=== PATIENT | male | born 1970 | race Caucasian/White ===

== ENCOUNTER 2021-09-20 08:47 | Outpatient (RCR) | payer BC ==
[2021-09-20] MEDS ORDERED: LIDOCAINE HCL 1% LOCAL INJ 20 ML VIAL ONE (10:18)
[2021-09-20] MEDS ORDERED: IOPAMIDOL 300 MG/ML 15ML VIAL IT ONE (10:19)
== END 2021-09-30 ==
LOC: DX 08:47
PROVIDERS: ATTEND Specialist
DX: S46.012A Strain of muscle(s) and tendon(s) of the rotator cuff of left shoulder, initial encounter (principal)
CPT/HCPCS: 23350; 73201; 77002; J2001; Q9967

== ENCOUNTER → 2021-09-30 | Outpatient (RCR) | payer BC | LOC: PT 09-24 08:57 | PROVIDERS: ATTEND Specialist | DX: S46.012A Strain of muscle(s) and tendon(s) of the rotator cuff of left shoulder, initial encounter (principal) ==

== ENCOUNTER 2021-10-04 09:52 | Outpatient (RCR) | payer BC ==
[2021-10-07] MEDS ORDERED: LEVOTHYROXINE50 MCG PO (09:24)
[2021-10-07] MEDS ORDERED: FUROSEMIDE40 MG PO (09:24)
[2021-10-07] MEDS ORDERED: ENTRESTO 24 MG1 EACH PO (09:24)
[2021-10-07] MEDS ORDERED: AMIODARONE HCL200 MG PO (09:24)
[2021-10-07] MEDS ORDERED: FLUOXETINE HCL10 MG PO (09:24)
[2021-10-07] MEDS ORDERED: ASPIRIN81 MG PO (09:24)
[2021-10-07] MEDS ORDERED: MELOXICAM7.5 MG PO (09:24)
[2021-10-07] MEDS ORDERED: CARVEDILOL3.125 MG PO (09:24)
[2021-10-10] MEDS ORDERED: HYDROCODON-ACE1 EA12 PO (10:20)
== END 2021-10-28 ==
LOC: PT 09:52
PROVIDERS: ATTEND Specialist
DX: S46.012A Strain of muscle(s) and tendon(s) of the rotator cuff of left shoulder, initial encounter (principal)

== ENCOUNTER 2021-10-10 06:20 | Observation (INO) | payer BC ==
[2021-10-07 10:33] LABS: BASOPHILS # (AUTO) 0.1 (0.0-0.1); BASOPHILS % 0.9 % (0.0-1.0); EOSINOPHILS # (AUTO) 0.1 (0.0-0.4); EOSINOPHILS % 1.3 % (0.0-6.0); HEMOGLOBIN 14.9 g/dL (14.0-18.0); LYMPHOCYTES # (AUTO) 2.2 (1.0-3.2); LYMPHOCYTES % 27.1 % (18.0-39.1); MEAN CORPUSCULAR HEMOGLOBIN 30.7 pg (28-32); MEAN CORPUSCULAR HGB CONC 32.4 g/dL (31-35); MEAN CORPUSCULAR VOLUME 94.7 fL (81-99); MONOCYTES # (AUTO) 0.5 (0.2-0.8); MONOCYTES % 6.6 % (4.4-11.3); NEUTROPHILS # (AUTO) 5.2 (2.1-6.9); NEUTROPHILS % 63.5 % (38.7-80.0); PLATELET COUNT 208 x10e3/uL (140-360); RED BLOOD COUNT 4.86 x10e6/uL (4.3-5.7)
[2021-10-07 10:54] LABS: CREATININE, SERUM 0.99 mg/dL (0.72-1.25)
[2021-10-07 11:03] LABS: INR 0.9; PROTHROMBIN TIME 12.8 seconds (11.9-14.5)
[2021-10-07 11:04] LABS: PARTIAL THROMBOPLASTIN TIME 25.8 seconds (23.8-35.5)
[~2021-10-10] VITALS: Ht 182.9 cm; Wt 109.3 kg
[~2021-10-10 06:20] MED LIST: AMIODARONE HCL200 MG PO; ASPIRIN81 MG PO; CARVEDILOL3.125 MG PO; ENTRESTO 24 MG1 EACH PO; FLUOXETINE HCL10 MG PO; FUROSEMIDE40 MG PO; LEVOTHYROXINE50 MCG PO; MELOXICAM7.5 MG PO
[2021-10-10] MEDS ORDERED: THROMBIN FOR SOLN 5,000 UNIT VIAL ONE (06:54)
[2021-10-10] MEDS ORDERED: Vancomycin IV 1 GM VIAL ONE (06:54)
[2021-10-10] MEDS ORDERED: LIDOCAINE 2%/ EPINEPHRINE 20ML MDV ONE (06:54)
[2021-10-10] MEDS ORDERED: CEPACOL SORE THROAT LOZENGES PO PRN (10:15)
[2021-10-10] MEDS: LACTATED RINGER'S 1,000 ML IV SCH ×2 (10:15→15:43)
[2021-10-10] MEDS ORDERED: MORPHINE SULFATE 5 MG/ML VIAL IM PRN (10:15)
[2021-10-10] MEDS ORDERED: MAGNESIUM/ALUMINUM/SIMETHICONE 30 ML UDC PO PRN (10:15)
[2021-10-10] MEDS ORDERED: PROMETHAZINE HCL (IM) 25 MG/ML VIAL IM PRN (10:15)
[2021-10-10] MEDS ORDERED: ACETAMINOPHEN 325 MG TAB PO PRN (10:15)
[2021-10-10] MEDS ORDERED: CARISOPRODOL 350 MG TAB PO PRN (10:15)
[2021-10-10] MEDS ORDERED: HYDROCODON-ACE1 EA12 PO (10:20)
[2021-10-10] MEDS ORDERED: FENTANYL CITRATE/PF 100MCG/2 ML INJ ONE ×2 (10:58→13:08)
[2021-10-10] MEDS ORDERED: Morphine 2mg Syringe 2 MG/ML SYR ONE (11:16)
[2021-10-10] MEDS ORDERED: ONDANSETRON HCL INJ 2MG/ML 2ML 2 MG/ML VIAL ONE (12:31)
[2021-10-10] MEDS ORDERED: POVIDONE IODINE 0.05% 0.05 % ML PO ONE (12:31)
[2021-10-10] MEDS ORDERED: PHENYLEPHRINE HCL 1% 10 MG/ML VIAL ONE (12:31)
[2021-10-10] MEDS ORDERED: ROCURONIUM BROMIDE 10 MG/ML 5ML VIAL IV ONE (12:31)
[2021-10-10] MEDS ORDERED: PROPOFOL IV EMULSION 10 MG/ML 20 ML VIAL ONE (12:31)
[2021-10-10] MEDS ORDERED: DEXAMETHASONE SOD PHOS INJ 4 MG/ML SDV ONE (12:31)
[2021-10-10] MEDS ORDERED: ACETAMINOPHEN 1000 MG/100 ML IV ONE (12:31)
[2021-10-10] MEDS ORDERED: LIDOCAINE HCL 2% LOCAL INJ 5 ML SDV VIAL INJ ONE (12:31)
[2021-10-10] MEDS ORDERED: SEVOFLURANE INHAL SOLN 250 ML PEN BTL ONE (12:31)
[2021-10-10] MEDS ORDERED: MIDAZOLAM HCL 2 MG/2 ML VIAL ONE (13:08)
[2021-10-10] MEDS: ONDANSETRON HCL INJ 2MG/ML 2ML 2 MG/ML VIAL IV PRN ×2 (14:03→18:48)
[2021-10-10] MEDS: HYDROMORPHONE 2MG/ML 2 MG/ML ML IV PRN ×3 (14:13→23:30)
[2021-10-10] MEDS: OXYCODONE/ACETAMINOPHEN 5-325 1 EACH TABLET PO PRN ×2 (15:31→22:12)
[2021-10-10 15:35] VITALS: BP 115/84
[2021-10-10 16:05] VITALS: BP 126/84
[2021-10-10] MEDS: Cefazolin 1 GM in SODIUM CHLORIDE 0.9% 50ML 50 ML IV SCH (16:45)
[2021-10-10] MEDS: CARVEDILOL 3.125 MG TAB PO SCH (16:45)
[2021-10-10] MEDS: VALSARTAN/SACUBITRIL 24MG/26MG 1 EA TAB PO SCH (16:46)
[2021-10-10 20:00] VITALS: BP 127/84
[2021-10-10] MEDS ORDERED: ZOLPIDEM TARTRATE 5 MG TAB PO PRN (21:00)
[2021-10-11] VITALS: BP 121/81
[2021-10-11] MEDS: Cefazolin 1 GM in SODIUM CHLORIDE 0.9% 50ML 50 ML IV SCH ×2 (00:20→08:23)
[2021-10-11 00:50] VITALS: BP 127/84
[2021-10-11] MEDS: LACTATED RINGER'S 1,000 ML IV SCH (02:57)
[2021-10-11 04:00] VITALS: BP 134/82
[2021-10-11] MEDS: HYDROMORPHONE 2MG/ML 2 MG/ML ML IV PRN (05:15)
[2021-10-11] MEDS ORDERED: LEVOTHYROXINE SODIUM 50 MCG TAB PO SCH (06:00)
[2021-10-11 08:15] VITALS: BP 119/79
[2021-10-11] MEDS: CARVEDILOL 3.125 MG TAB PO SCH (08:23)
[2021-10-11] MEDS: VALSARTAN/SACUBITRIL 24MG/26MG 1 EA TAB PO SCH (08:23)
[2021-10-11] MEDS: OXYCODONE/ACETAMINOPHEN 5-325 1 EACH TABLET PO PRN (08:26)
[2021-10-11] MEDS ORDERED: FLUOXETINE HCL 10 MG CAP PO SCH (09:00)
[2021-10-11] MEDS ORDERED: AMIODARONE HCL 200 MG TAB PO SCH (09:00)
[2021-10-11] MEDS ORDERED: MELOXICAM 7.5 MG TAB PO SCH (09:00)
[2021-10-11] MEDS ORDERED: FUROSEMIDE 20 MG TAB PO SCH (09:00)
== END 2021-10-11 10:12 | disposition home or self-care (01) ==
LOC: OR 06:20 → PACU V 10:37 → MED/SURG 12:10
PROVIDERS: ADMIT Neurological Surgery; ATTEND Neurological Surgery
DX: M50.122 Cervical disc disorder at C5-C6 level with radiculopathy (principal); N17.9 Acute kidney failure, unspecified; I25.2 Old myocardial infarction; Z20.822 Contact with and (suspected) exposure to COVID-19; Z01.818 Encounter for other preprocedural examination; E87.5 Hyperkalemia; I11.0 Hypertensive heart disease with heart failure; I42.9 Cardiomyopathy, unspecified; I50.42 Chronic combined systolic (congestive) and diastolic (congestive) heart failure
CPT/HCPCS: 20931; 22551; 22845; 36415; 71046; 72040; 76000; 80048; 85025; 85610; 85730; 86850; 86900; 88304; 88311; 93005 ×3; C1713; G0378 ×2; J0131; J0690 ×2; J1100; J1170 ×2; J2001 ×2; J2250; J2270; J2370; J2405 ×2; J2704; J3010; J3370; J7121 ×2; U0002

== ENCOUNTER → 2021-10-28 | Outpatient (CLI) | payer BC ==
[~2021-10-28] MED LIST changes: +HYDROCODON-ACE1 EA12 PO
== END ==
LOC: RAD 09:21
PROVIDERS: ATTEND Neurological Surgery
DX: M50.20 Other cervical disc displacement, unspecified cervical region (principal); M43.22 Fusion of spine, cervical region
CPT/HCPCS: 72050

== ENCOUNTER 2021-10-30 09:52 | Outpatient (RCR) | payer BC | END 2021-11-28 | LOC: PT 09:52 | PROVIDERS: ATTEND Specialist | DX: S46.012A Strain of muscle(s) and tendon(s) of the rotator cuff of left shoulder, initial encounter (principal); M25.512 Pain in left shoulder | CPT/HCPCS: 97139 ==

== ENCOUNTER 2021-11-26 07:03 | Observation (INO) | payer BC ==
[2021-11-22 12:03] LABS: BASOPHILS # (AUTO) 0.1 (0.0-0.1); BASOPHILS % 0.9 % (0.0-1.0); EOSINOPHILS # (AUTO) 0.2 (0.0-0.4); EOSINOPHILS % 2.6 % (0.0-6.0); HEMATOCRIT 43.4 % (38.2-49.6); HEMOGLOBIN 14.3 g/dL (14.0-18.0); LYMPHOCYTES # (AUTO) 1.8 (1.0-3.2); MEAN CORPUSCULAR HEMOGLOBIN 31.1 pg (28-32); MEAN CORPUSCULAR HGB CONC 32.9 g/dL (31-35); MEAN CORPUSCULAR VOLUME 94.3 fL (81-99); MONOCYTES # (AUTO) 0.5 (0.2-0.8); MONOCYTES % 6.9 % (4.4-11.3); NEUTROPHILS # (AUTO) 4.1 (2.1-6.9); PLATELET COUNT 178 x10e3/uL (140-360); RED CELL DISTRIBUTION WIDTH 13.5 % (11.7-14.4)
[2021-11-22 12:22] LABS: ANION GAP 10.2 mmol/L (8-16); CALCIUM 9.1 mg/dL (8.4-10.2); CREATININE, SERUM 0.92 mg/dL (0.72-1.25); POTASSIUM 4.2 mmol/L (3.5-5.1)
[~2021-11-26] VITALS: Ht 182.9 cm; Wt 113.4 kg
[2021-11-26] MEDS ORDERED: SODIUM CHLORIDE 0.9% 50ML 50 ML ONE (07:21)
[2021-11-26] MEDS ORDERED: HYDRALAZINE HCL 20 MG/ML VIAL ONE (12:56)
[2021-11-26] MEDS ORDERED: Morphine 4mg Syringe 4 MG/ML INJ ONE (13:01)
[2021-11-26] MEDS ORDERED: ONDANSETRON HCL INJ 2MG/ML 2ML 2 MG/ML VIAL ONE (13:04)
[2021-11-26] MEDS ORDERED: SEVOFLURANE INHAL SOLN 250 ML PEN BTL ONE (13:04)
[2021-11-26] MEDS ORDERED: PROPOFOL IV EMULSION 10 MG/ML 20 ML VIAL ONE (13:04)
[2021-11-26] MEDS ORDERED: LIDOCAINE HCL 2% LOCAL INJ 5 ML SDV VIAL INJ ONE (13:04)
[2021-11-26] MEDS ORDERED: ACETAMINOPHEN 1000 MG/100 ML IV ONE (13:04)
[2021-11-26] MEDS ORDERED: DEXAMETHASONE SOD PHOS INJ 4 MG/ML SDV ONE (13:04)
[2021-11-26] MEDS ORDERED: POVIDONE IODINE 0.05% 0.05 % ML PO ONE (13:04)
[2021-11-26] MEDS ORDERED: KETOROLAC TROMETHAMINE 30 MG/ML VIAL ONE (13:04)
[2021-11-26] MEDS ORDERED: NITROGLYCERIN 0.4 MG SUBL ONE (13:13)
[2021-11-26] MEDS ORDERED: ASPIRIN 325 MG TAB ONE (13:37)
[2021-11-26] MEDS ORDERED: FENTANYL CITRATE/PF 100MCG/2 ML INJ ONE ×2 (14:29→17:02)
[2021-11-26 14:38] LABS: CREATINE KINASE MB 0.7 ng/mL (0-5.0)
[2021-11-26] MEDS ORDERED: ACETAMINOPHEN/CODEINE 300MG - 30MG TAB ONE (15:37)
[2021-11-26 15:40] VITALS: BP 116/68
[2021-11-26 15:43] VITALS: BP 116/68
[2021-11-26] MEDS ORDERED: MIDAZOLAM HCL 2 MG/2 ML VIAL ONE (17:02)
[2021-11-26] MEDS ORDERED: FUROSEMIDE INJ 10 MG/ML 4 ML VIAL IV ONE (18:45)
[2021-11-26] MEDS ORDERED: Morphine 2mg Syringe 2 MG/ML SYR IV ONE (18:50)
[2021-11-26 20:00] VITALS: BP 114/70
[2021-11-26] MEDS: HYDROCODONE/APAP 7.5MG-325MG 1 EA TAB PO PRN (21:56)
[2021-11-26 22:02] VITALS: BP 114/70
[2021-11-26 22:02] LABS: CREATINE KINASE 50 IU/L (30-200)
[2021-11-27] VITALS: BP 126/82
[2021-11-27] MEDS: HYDROCODONE/APAP 7.5MG-325MG 1 EA TAB PO PRN ×3 (03:57→14:50)
[2021-11-27 04:00] VITALS: BP 129/77
[2021-11-27 05:42] LABS: BASOPHILS % 0.1 % (0.0-1.0); EOSINOPHILS % 0.1 % (0.0-6.0); HEMATOCRIT 38.2 % (38.2-49.6); HEMOGLOBIN 12.9 g/dL (14.0-18.0); LYMPHOCYTES # (AUTO) 1.2 (1.0-3.2); LYMPHOCYTES % 14.8 % (18.0-39.1); MEAN CORPUSCULAR HEMOGLOBIN 31.5 pg (28-32); MEAN CORPUSCULAR HGB CONC 33.8 g/dL (31-35); MEAN CORPUSCULAR VOLUME 93.4 fL (81-99); MONOCYTES # (AUTO) 0.4 (0.2-0.8); MONOCYTES % 4.6 % (4.4-11.3); NEUTROPHILS # (AUTO) 6.3 (2.1-6.9); NEUTROPHILS % 79.8 % (38.7-80.0); PLATELET COUNT 184 x10e3/uL (140-360); RED BLOOD COUNT 4.09 x10e6/uL (4.3-5.7); RED CELL DISTRIBUTION WIDTH 13.4 % (11.7-14.4)
[2021-11-27 06:08] LABS: ALBUMIN 3.5 g/dL (3.5-5.0); ALBUMIN/GLOBULIN RATIO 1.1 (0.8-2.0); CALCIUM 8.8 mg/dL (8.4-10.2); CREATININE, SERUM 0.82 mg/dL (0.72-1.25)
[2021-11-27 06:40] LABS: CREATINE KINASE MB 0.5 ng/mL (0-5.0)
[2021-11-27 08:20] VITALS: BP 132/78
[2021-11-27 08:39] VITALS: BP 132/78
[2021-11-27] MEDS ORDERED: FUROSEMIDE 20 MG TAB PO SCH (09:00)
[2021-11-27] MEDS ORDERED: ASPIRIN 81 MG CHEW TAB PO SCH (09:00)
[2021-11-27] MEDS: CARVEDILOL 3.125 MG TAB PO SCH ×2 (09:48→17:39)
[2021-11-27] MEDS: VALSARTAN/SACUBITRIL 24MG/26MG 1 EA TAB PO SCH ×2 (09:49→17:39)
[2021-11-27 13:32] VITALS: BP 132/76
[2021-11-27 16:33] VITALS: BP 129/81
[2021-11-27] MEDS ORDERED: TAMSULOSIN HCL 0.4 MG CAP PO SCH (17:40)
[2021-11-28] MEDS ORDERED: FUROSEMIDE 20 MG TAB PO SCH ×2 (09:00)
== END 2021-11-27 19:54 | disposition home or self-care (01) ==
LOC: OR 07:03 → PACU V 14:18 → MED/SURG 15:21
PROVIDERS: ADMIT Specialist; ATTEND Specialist
DX: M22.41 Chondromalacia patellae, right knee (principal); T88.59XA Other complications of anesthesia, initial encounter; R07.9 Chest pain, unspecified; E78.5 Hyperlipidemia, unspecified; I49.5 Sick sinus syndrome; G89.18 Other acute postprocedural pain; E03.9 Hypothyroidism, unspecified; I11.0 Hypertensive heart disease with heart failure; I50.9 Heart failure, unspecified; Z95.810 Presence of automatic (implantable) cardiac defibrillator; Z79.82 Long term (current) use of aspirin; Z88.0 Allergy status to penicillin; Z01.812 Encounter for preprocedural laboratory examination; Z20.822 Contact with and (suspected) exposure to COVID-19; Z82.49 Family history of ischemic heart disease and other diseases of the circulatory system
CPT/HCPCS: 29877; 36415 ×3; 71045; 80048; 80053; 82550 ×2; 82553 ×2; 84484 ×2; 85025 ×2; 93005; 93306; G0378 ×2; J0131; J0360; J0690; J1100; J1885; J1940; J2001; J2270 ×2; J2405; J2704; J3010; U0002; J2250

== ENCOUNTER 2021-12-17 10:36 | Inpatient (IN) | payer BC ==
[~2021-12-17] VITALS: Ht 182.9 cm; Wt 113.5 kg
[2021-12-17] MEDS ORDERED: ASPIRIN 81 MG CHEW TAB PO ONE (10:45)
[2021-12-17 11:22] LABS: BASOPHILS # (AUTO) 0.1 (0.0-0.1); BASOPHILS % 0.8 % (0.0-1.0); EOSINOPHILS # (AUTO) 0.1 (0.0-0.4); EOSINOPHILS % 2.2 % (0.0-6.0); HEMATOCRIT 40.8 % (38.2-49.6); HEMOGLOBIN 13.9 g/dL (14.0-18.0); LYMPHOCYTES # (AUTO) 1.7 (1.0-3.2); MEAN CORPUSCULAR HEMOGLOBIN 31.6 pg (28-32); MEAN CORPUSCULAR HGB CONC 34.1 g/dL (31-35); MEAN CORPUSCULAR VOLUME 92.7 fL (81-99); MONOCYTES # (AUTO) 0.5 (0.2-0.8); MONOCYTES % 7.1 % (4.4-11.3); NEUTROPHILS % 62.6 % (38.7-80.0); PLATELET COUNT 202 x10e3/uL (140-360); RED CELL DISTRIBUTION WIDTH 13.1 % (11.7-14.4)
[2021-12-17 11:34] LABS: INR 0.91; PARTIAL THROMBOPLASTIN TIME 27.7 seconds (23.8-35.5); PROTHROMBIN TIME 13.1 seconds (11.9-14.5)
[2021-12-17] MEDS ORDERED: IOPAMIDOL 370 MG/ML 100 ML INFUS..BTL INJ ONE (11:42)
[2021-12-17 11:43] LABS: ALANINE AMINOTRANSFERASE 17 IU/L (0-55); ALBUMIN 3.6 g/dL (3.5-5.0); ALBUMIN/GLOBULIN RATIO 1.1 (0.8-2.0); ALKALINE PHOSPHATASE 49 IU/L (40-150); BLOOD UREA NITROGEN 14 mg/dL (7-26); BUN/CREATININE RATIO 18 (6-25); CALCIUM 8.4 mg/dL (8.4-10.2); CARBON DIOXIDE 23 mmol/L (22-29); CHLORIDE 109 mmol/L (98-107); CREATINE KINASE 68 IU/L (30-200); CREATININE, SERUM 0.79 mg/dL (0.72-1.25); EST GLOMERULAR FILTRATION RATE 103 ML/MIN (60-); GLUCOSE 94 mg/dL (74-118); SODIUM 140 mmol/L (136-145)
[2021-12-17] MEDS ORDERED: ONDANSETRON HCL INJ 2MG/ML 2ML 2 MG/ML VIAL IV STA (11:49)
[2021-12-17] MEDS ORDERED: Morphine 4mg Syringe 4 MG/ML INJ IV ONE (12:00)
[2021-12-17] MEDS ORDERED: NITROGLYCERIN 0.4 MG SUBL SL PRN (13:00)
[2021-12-17] MEDS: FAMOTIDINE 20 MG/2 ML VIAL IV SCH ×2 (14:18→21:00)
[2021-12-17 15:30] VITALS: BP 108/62
[2021-12-17 15:57] VITALS: BP 108/62
[2021-12-17] MEDS: ONDANSETRON HCL INJ 2MG/ML 2ML 2 MG/ML VIAL IV PRN ×2 (16:55→21:32)
[2021-12-17] MEDS: Morphine 4mg Syringe 4 MG/ML INJ IV PRN ×2 (16:55→21:32)
[2021-12-17] MEDS: CARVEDILOL 3.125 MG TAB PO SCH (17:38)
[2021-12-17] MEDS ORDERED: FUROSEMIDE INJ 10 MG/ML 4 ML VIAL IV ONE (17:45)
[2021-12-17] MEDS: VALSARTAN/SACUBITRIL 24MG/26MG 1 EA TAB PO SCH (18:33)
[2021-12-17 20:14] LABS: CREATINE KINASE 55 IU/L (30-200)
[2021-12-17] MEDS ORDERED: TAMSULOSIN HCL 0.4 MG CAP PO SCH (21:00)
[2021-12-17] MEDS: TRAMADOL HCL 50 MG TAB PO PRN (21:00)
[2021-12-17 21:50] VITALS: BP 105/58
[2021-12-17 23:58] VITALS: BP 118/59
[2021-12-18] MEDS: ONDANSETRON HCL INJ 2MG/ML 2ML 2 MG/ML VIAL IV PRN ×3 (03:29→13:20)
[2021-12-18] MEDS: Morphine 4mg Syringe 4 MG/ML INJ IV PRN ×4 (03:29→17:36)
[2021-12-18] MEDS: LEVOTHYROXINE SODIUM 50 MCG TAB PO SCH (05:19)
[2021-12-18 05:23] LABS: BASOPHILS % 0.6 % (0.0-1.0); EOSINOPHILS # (AUTO) 0.2 (0.0-0.4); EOSINOPHILS % 2.9 % (0.0-6.0); HEMATOCRIT 38.8 % (38.2-49.6); HEMOGLOBIN 12.6 g/dL (14.0-18.0); LYMPHOCYTES # (AUTO) 2.1 (1.0-3.2); LYMPHOCYTES % 34.2 % (18.0-39.1); MEAN CORPUSCULAR HEMOGLOBIN 31.1 pg (28-32); MEAN CORPUSCULAR HGB CONC 32.5 g/dL (31-35); MEAN CORPUSCULAR VOLUME 95.8 fL (81-99); MONOCYTES # (AUTO) 0.4 (0.2-0.8); MONOCYTES % 6.5 % (4.4-11.3); NEUTROPHILS # (AUTO) 3.4 (2.1-6.9); NEUTROPHILS % 55.3 % (38.7-80.0); PLATELET COUNT 184 x10e3/uL (140-360); RED BLOOD COUNT 4.05 x10e6/uL (4.3-5.7); RED CELL DISTRIBUTION WIDTH 13.3 % (11.7-14.4)
[2021-12-18 05:51] LABS: ALBUMIN 3.3 g/dL (3.5-5.0); ALBUMIN/GLOBULIN RATIO 1.1 (0.8-2.0); ANION GAP 10.6 mmol/L (8-16); CHOL/HDL RATIO 2.8 (3.9-4.7); CREATININE, SERUM 0.9 mg/dL (0.72-1.25); POTASSIUM 3.6 mmol/L (3.5-5.1)
[2021-12-18 06:16] LABS: CREATINE KINASE 43 IU/L (30-200)
[2021-12-18 06:31] VITALS: BP 120/60
[2021-12-18 08:00] VITALS: BP 105/68
[2021-12-18 08:08] VITALS: BP 105/68
[2021-12-18] MEDS: ASPIRIN 81 MG CHEW TAB PO SCH (08:51)
[2021-12-18] MEDS: AMIODARONE HCL 200 MG TAB PO SCH (08:51)
[2021-12-18] MEDS: VALSARTAN/SACUBITRIL 24MG/26MG 1 EA TAB PO SCH ×2 (08:51→17:31)
[2021-12-18] MEDS: FAMOTIDINE 20 MG/2 ML VIAL IV SCH ×2 (08:51→21:12)
[2021-12-18] MEDS: CARVEDILOL 3.125 MG TAB PO SCH ×2 (08:51→17:31)
[2021-12-18] MEDS: FLUOXETINE HCL 10 MG CAP PO SCH (08:52)
[2021-12-18] MEDS: FUROSEMIDE 20 MG TAB PO SCH (08:54)
[2021-12-18] MEDS ORDERED: ASPIRIN 81 MG ENTERIC COATED PO SCH (09:00)
[2021-12-18] MEDS: TRAMADOL HCL 50 MG TAB PO PRN (10:37)
[2021-12-18 10:41] VITALS: BP 116/69
[2021-12-18 14:41] LABS: CREATINE KINASE 46 IU/L (30-200)
[2021-12-18 16:32] VITALS: BP 128/76
[2021-12-18 20:00] VITALS: BP 111/67
[2021-12-18] MEDS: TAMSULOSIN HCL 0.4 MG CAP PO SCH (21:12)
[2021-12-18] MEDS: HYDROMORPHONE 1MG/1ML INJ IV PRN (22:16)
[2021-12-19] VITALS: BP 117/57
[2021-12-19] MEDS: TRAMADOL HCL 50 MG TAB PO PRN ×3 (00:05→16:23)
[2021-12-19] MEDS: HYDROMORPHONE 1MG/1ML INJ IV PRN ×2 (03:37→22:56)
[2021-12-19 04:22] VITALS: BP 109/67
[2021-12-19] MEDS: LEVOTHYROXINE SODIUM 50 MCG TAB PO SCH (05:51)
[2021-12-19 07:49] VITALS: BP 102/61
[2021-12-19 08:00] VITALS: BP 102/61
[2021-12-19 08:24] LABS: BASOPHILS % 0.6 % (0.0-1.0); EOSINOPHILS # (AUTO) 0.2 (0.0-0.4); EOSINOPHILS % 2.6 % (0.0-6.0); HEMATOCRIT 39.8 % (38.2-49.6); LYMPHOCYTES # (AUTO) 1.9 (1.0-3.2); LYMPHOCYTES % 28.5 % (18.0-39.1); MEAN CORPUSCULAR HEMOGLOBIN 31.2 pg (28-32); MEAN CORPUSCULAR HGB CONC 32.7 g/dL (31-35); MEAN CORPUSCULAR VOLUME 95.4 fL (81-99); MONOCYTES # (AUTO) 0.5 (0.2-0.8); MONOCYTES % 6.8 % (4.4-11.3); NEUTROPHILS # (AUTO) 4.2 (2.1-6.9); NEUTROPHILS % 61.1 % (38.7-80.0); PLATELET COUNT 186 x10e3/uL (140-360); RED BLOOD COUNT 4.17 x10e6/uL (4.3-5.7); RED CELL DISTRIBUTION WIDTH 12.9 % (11.7-14.4)
[2021-12-19 08:46] LABS: CALCIUM 8.3 mg/dL (8.4-10.2); CREATININE, SERUM 0.82 mg/dL (0.72-1.25)
[2021-12-19] MEDS ORDERED: LIDOCAINE 4% PATCH TP SCH (09:00)
[2021-12-19] MEDS: AMIODARONE HCL 200 MG TAB PO SCH (09:39)
[2021-12-19] MEDS: ASPIRIN 81 MG CHEW TAB PO SCH (09:39)
[2021-12-19] MEDS: FAMOTIDINE 20 MG/2 ML VIAL IV SCH ×2 (09:39→21:00)
[2021-12-19] MEDS: VALSARTAN/SACUBITRIL 24MG/26MG 1 EA TAB PO SCH ×2 (09:40→16:23)
[2021-12-19] MEDS: TAMSULOSIN HCL 0.4 MG CAP PO SCH ×2 (09:41→16:23)
[2021-12-19] MEDS: FLUOXETINE HCL 10 MG CAP PO SCH (09:41)
[2021-12-19] MEDS: CARVEDILOL 3.125 MG TAB PO SCH ×2 (09:44→16:23)
[2021-12-19] MEDS: FUROSEMIDE 20 MG TAB PO SCH (09:52)
[2021-12-19 11:18] VITALS: BP 123/66
[2021-12-19] MEDS ORDERED: ONDANSETRON HCL 4 MG ORAL DISINTEGRATING TAB PO PRN (18:15)
[2021-12-19 20:00] VITALS: BP 119/77
[2021-12-20] VITALS: BP 118/69
[2021-12-20 04:00] VITALS: BP 110/87
[2021-12-20] MEDS: LEVOTHYROXINE SODIUM 50 MCG TAB PO SCH (05:13)
[2021-12-20] MEDS: HYDROMORPHONE 1MG/1ML INJ IV PRN (05:14)
[2021-12-20 08:42] VITALS: BP 133/82
[2021-12-20] MEDS: AMIODARONE HCL 200 MG TAB PO SCH (09:00)
[2021-12-20] MEDS ORDERED: LIDOCAINE 4% PATCH TP SCH (09:00)
[2021-12-20] MEDS: CARVEDILOL 3.125 MG TAB PO SCH (09:00)
[2021-12-20] MEDS: FUROSEMIDE 20 MG TAB PO SCH (09:00)
[2021-12-20] MEDS: TAMSULOSIN HCL 0.4 MG CAP PO SCH (09:00)
[2021-12-20] MEDS: VALSARTAN/SACUBITRIL 24MG/26MG 1 EA TAB PO SCH (09:00)
[2021-12-20] MEDS: FLUOXETINE HCL 10 MG CAP PO SCH (09:00)
[2021-12-20] MEDS: ASPIRIN 81 MG CHEW TAB PO SCH (09:00)
[2021-12-20 10:15] VITALS: BP 133/82
[2021-12-20] MEDS ORDERED: FLOMAX0.4 MG PO (10:50)
[2021-12-20] MEDS ORDERED: PROSCAR5 MG PO (10:51)
[2021-12-20] MEDS ORDERED: FAMOTIDINE 20 MG TAB PO SCH (21:00)
== END 2021-12-20 12:06 | disposition home or self-care (01) | DRG 313 ==
LOC: ER 11:28 → ERHOLD 12:47 → MED/SURG 15:23
PROVIDERS: ADMIT Family Medicine; ATTEND Family Medicine
DX: R07.89 Other chest pain (principal); I42.9 Cardiomyopathy, unspecified; I10 Essential (primary) hypertension; R33.9 Retention of urine, unspecified; Z95.810 Presence of automatic (implantable) cardiac defibrillator; G47.33 Obstructive sleep apnea (adult) (pediatric); Z86.74 Personal history of sudden cardiac arrest; E03.9 Hypothyroidism, unspecified; E78.5 Hyperlipidemia, unspecified; E83.41 Hypermagnesemia; D64.9 Anemia, unspecified; E83.51 Hypocalcemia; N47.1 Phimosis; I49.5 Sick sinus syndrome; N40.1 Benign prostatic hyperplasia with lower urinary tract symptoms; R33.8 Other retention of urine; N28.1 Cyst of kidney, acquired; Z20.822 Contact with and (suspected) exposure to COVID-19
CPT/HCPCS: 36415; 70450; 71045; 71260; 74176; 80048; 80053; 80061; 82533; 82550; 82553; 83735; 83880; 84443; 84484; 85025; 85610; 85651; 85730; 86141; 87040; 93005; 93306; 93880; 94799; 99251; 99284; J1170; J1940; J2270; J2405; Q9967; U0002

== ENCOUNTER → 2022-01-13 | Day surgery (SDC) | payer BC ==
[~2022-01-13] MED LIST changes: +ACETAMINOPHEN 1000 MG/100 ML IV ONE; +DEXAMETHASONE SOD PHOS INJ 4 MG/ML SDV ONE; +EPHEDRINE SULFATE INJ 50 MG/ML VIAL ONE; +EPINEPHRINE 1 MG/ML 30ML VIAL ONE; +FENTANYL CITRATE/PF 100MCG/2 ML INJ ONE; +FLOMAX0.4 MG PO; +GLYCOPYRROLATE INJ 0.2 MG/ML VIAL ONE; +LIDOCAINE HCL 2% LOCAL 20 ML VIAL ONE; +LIDOCAINE HCL 2% LOCAL INJ 5 ML SDV VIAL INJ ONE; +MEPERIDINE HCL INJ 25 MG/ML VIAL ONE; +MIDAZOLAM HCL 2 MG/2 ML VIAL ONE; +Morphine 2mg Syringe 2 MG/ML SYR ONE; +NEOSTIGMINE 1 MG/ML 10ML VIAL ONE; +ONDANSETRON HCL INJ 2MG/ML 2ML 2 MG/ML VIAL ONE; +POVIDONE IODINE 0.05% 0.05 % ML PO ONE; +PROPOFOL IV EMULSION 10 MG/ML 20 ML VIAL ONE; +PROSCAR5 MG PO; +ROPIVACAINE 0.5% 5 MG/ML 30 ML SDV ONE; +SEVOFLURANE INHAL SOLN 250 ML PEN BTL ONE
[2022-01-13 10:40] VITALS: BP 125/81
== END | disposition home or self-care (01) ==
LOC: OR 07:22
PROVIDERS: ATTEND Specialist
DX: S46.012A Strain of muscle(s) and tendon(s) of the rotator cuff of left shoulder, initial encounter (principal); M19.012 Primary osteoarthritis, left shoulder; I11.0 Hypertensive heart disease with heart failure; I50.42 Chronic combined systolic (congestive) and diastolic (congestive) heart failure; R07.89 Other chest pain; I42.9 Cardiomyopathy, unspecified; E78.5 Hyperlipidemia, unspecified; R94.31 Abnormal electrocardiogram [ECG] [EKG]; R93.1 Abnormal findings on diagnostic imaging of heart and coronary circulation; I44.7 Left bundle-branch block, unspecified; F41.9 Anxiety disorder, unspecified; X58.XXXA Exposure to other specified factors, initial encounter; Z88.0 Allergy status to penicillin; Z01.812 Encounter for preprocedural laboratory examination; Z20.822 Contact with and (suspected) exposure to COVID-19; Z79.82 Long term (current) use of aspirin; Z68.33 Body mass index [BMI] 33.0-33.9, adult; Z95.810 Presence of automatic (implantable) cardiac defibrillator; Z86.74 Personal history of sudden cardiac arrest
CPT/HCPCS: 29827; C1713; J0131; J0690; J1100; J2001; J2175; J2270; J2405; J2704; J2710; U0002; J2250; J2795; J3010

== ENCOUNTER → 2022-02-25 | Day surgery (SDC) | payer BC ==
[2022-02-21 09:13] LABS: BASOPHILS # (AUTO) 0.1 (0.0-0.1); BASOPHILS % 0.8 % (0.0-1.0); EOSINOPHILS # (AUTO) 0.2 (0.0-0.4); EOSINOPHILS % 3.4 % (0.0-6.0); HEMATOCRIT 45.2 % (38.2-49.6); HEMOGLOBIN 14.2 g/dL (14.0-18.0); LYMPHOCYTES # (AUTO) 1.6 (1.0-3.2); LYMPHOCYTES % 25.5 % (18.0-39.1); MEAN CORPUSCULAR HEMOGLOBIN 30.9 pg (28-32); MEAN CORPUSCULAR HGB CONC 31.4 g/dL (31-35); MEAN CORPUSCULAR VOLUME 98.5 fL (81-99); MONOCYTES # (AUTO) 0.4 (0.2-0.8); MONOCYTES % 5.8 % (4.4-11.3); PLATELET COUNT 195 x10e3/uL (140-360); RED BLOOD COUNT 4.59 x10e6/uL (4.3-5.7); RED CELL DISTRIBUTION WIDTH 12.6 % (11.7-14.4)
[2022-02-21 09:44] LABS: ANION GAP 16.1 mmol/L (8-16); CREATININE, SERUM 0.85 mg/dL (0.72-1.25); POTASSIUM 4.1 mmol/L (3.5-5.1)
[~2022-02-25] MED LIST changes: -ACETAMINOPHEN 1000 MG/100 ML IV ONE; +B&O 60MG R/S 60 MG SUPP PR ONE; +CEFTRIAXONE 1 GM VIAL ONE; -EPHEDRINE SULFATE INJ 50 MG/ML VIAL ONE; -EPINEPHRINE 1 MG/ML 30ML VIAL ONE; +GENTAMICIN 80MG/NS 100 ML 200 ML IV ONE; -GLYCOPYRROLATE INJ 0.2 MG/ML VIAL ONE; +IOPAMIDOL 610MG/1ML 300 MG/ML VIAL IV ONE; -LIDOCAINE HCL 2% LOCAL 20 ML VIAL ONE; -MEPERIDINE HCL INJ 25 MG/ML VIAL ONE; -Morphine 2mg Syringe 2 MG/ML SYR ONE; -NEOSTIGMINE 1 MG/ML 10ML VIAL ONE; +PHENAZOPYRIDINE HCL 100 MG TAB ONE; -ROPIVACAINE 0.5% 5 MG/ML 30 ML SDV ONE
[2022-02-25 08:35] VITALS: BP 162/89
== END | disposition home or self-care (01) ==
LOC: OR 05:41
PROVIDERS: ATTEND Urology
DX: N40.1 Benign prostatic hyperplasia with lower urinary tract symptoms (principal); N13.8 Other obstructive and reflux uropathy; R39.14 Feeling of incomplete bladder emptying; R33.9 Retention of urine, unspecified; R35.1 Nocturia; R39.16 Straining to void; N20.0 Calculus of kidney; N32.81 Overactive bladder; N28.1 Cyst of kidney, acquired; I13.0 Hypertensive heart and chronic kidney disease with heart failure and stage 1 through stage 4 chronic kidney disease, or unspecified chronic kidney disease; N18.9 Chronic kidney disease, unspecified; I50.9 Heart failure, unspecified; N47.1 Phimosis; N47.6 Balanoposthitis; N35.919 Unspecified urethral stricture, male, unspecified site; N32.89 Other specified disorders of bladder; F41.9 Anxiety disorder, unspecified; M54.2 Cervicalgia; G47.33 Obstructive sleep apnea (adult) (pediatric); E78.5 Hyperlipidemia, unspecified; E66.9 Obesity, unspecified; E03.9 Hypothyroidism, unspecified; I10 Essential (primary) hypertension; Z01.812 Encounter for preprocedural laboratory examination; Z20.822 Contact with and (suspected) exposure to COVID-19; Z79.82 Long term (current) use of aspirin; Z79.899 Other long term (current) drug therapy; Z68.33 Body mass index [BMI] 33.0-33.9, adult; Z95.0 Presence of cardiac pacemaker; Z86.74 Personal history of sudden cardiac arrest; Z87.891 Personal history of nicotine dependence
CPT/HCPCS: 52005; C9740; 0223U; 36415; 74420; 80048; 85025; C1758; J0696; J1100; J1580; J2001; J2250; J2405; J3010; L8699

== ENCOUNTER 2022-03-10 18:08 | Inpatient (IN) | payer SELFPAY ==
[~2022-03-10] VITALS: Ht 182.9 cm; Wt 118.1 kg
[~2022-03-10 18:08] MED LIST changes: -B&O 60MG R/S 60 MG SUPP PR ONE; -CEFTRIAXONE 1 GM VIAL ONE; -DEXAMETHASONE SOD PHOS INJ 4 MG/ML SDV ONE; -FENTANYL CITRATE/PF 100MCG/2 ML INJ ONE; -GENTAMICIN 80MG/NS 100 ML 200 ML IV ONE; -IOPAMIDOL 610MG/1ML 300 MG/ML VIAL IV ONE; -LIDOCAINE HCL 2% LOCAL INJ 5 ML SDV VIAL INJ ONE; -MIDAZOLAM HCL 2 MG/2 ML VIAL ONE; -ONDANSETRON HCL INJ 2MG/ML 2ML 2 MG/ML VIAL ONE; -PHENAZOPYRIDINE HCL 100 MG TAB ONE; -POVIDONE IODINE 0.05% 0.05 % ML PO ONE; -PROPOFOL IV EMULSION 10 MG/ML 20 ML VIAL ONE; -SEVOFLURANE INHAL SOLN 250 ML PEN BTL ONE
[2022-03-10] MEDS ORDERED: METOCLOPRAMIDE HCL 10 MG/2ML VIAL IV ONE (18:45)
[2022-03-10] MEDS ORDERED: DIPHENHYDRAMINE HCL 25 MG CAP PO ONE (18:45)
[2022-03-10] MEDS ORDERED: SODIUM CHLORIDE 0.9% 1000ML 1,000 ML IV SCH (18:45)
[2022-03-10 19:03] LABS: BASOPHILS # (AUTO) 0.1 (0.0-0.1); BASOPHILS % 0.8 % (0.0-1.0); EOSINOPHILS # (AUTO) 0.2 (0.0-0.4); EOSINOPHILS % 3.1 % (0.0-6.0); HEMATOCRIT 45.9 % (38.2-49.6); HEMOGLOBIN 15.2 g/dL (14.0-18.0); LYMPHOCYTES # (AUTO) 2.2 (1.0-3.2); LYMPHOCYTES % 28.6 % (18.0-39.1); MEAN CORPUSCULAR HEMOGLOBIN 30.9 pg (28-32); MEAN CORPUSCULAR HGB CONC 33.1 g/dL (31-35); MEAN CORPUSCULAR VOLUME 93.3 fL (81-99); MONOCYTES # (AUTO) 0.6 (0.2-0.8); MONOCYTES % 7.7 % (4.4-11.3); NEUTROPHILS # (AUTO) 4.6 (2.1-6.9); PLATELET COUNT 253 x10e3/uL (140-360); RED BLOOD COUNT 4.92 x10e6/uL (4.3-5.7); RED CELL DISTRIBUTION WIDTH 12.9 % (11.7-14.4)
[2022-03-10 19:10] LABS: INR 0.84; PROTHROMBIN TIME 12.3 seconds (11.9-14.5)
[2022-03-10 19:11] LABS: PARTIAL THROMBOPLASTIN TIME 25.2 seconds (23.8-35.5)
[2022-03-10 19:22] LABS: ALBUMIN 3.8 g/dL (3.5-5.0); ANION GAP 14.8 mmol/L (8-16); CREATININE, SERUM 0.87 mg/dL (0.72-1.25); POTASSIUM 3.8 mmol/L (3.5-5.1)
[2022-03-10 19:29] LABS: CREATINE KINASE MB 0.6 ng/mL (0-5.0)
[2022-03-10] MEDS ORDERED: KETOROLAC TROMETHAMINE 30 MG/ML VIAL IV STA (20:04)
[2022-03-10] MEDS ORDERED: ASPIRIN 81 MG CHEW TAB PO ONE (20:15)
[2022-03-10] MEDS ORDERED: LACTATED RINGER'S 1,000 ML INJ ONE (23:00)
[2022-03-11] VITALS (8 sets, daily range): BP systolic 110–128; BP diastolic 66–79
[2022-03-11] MEDS: ONDANSETRON HCL INJ 2MG/ML 2ML 2 MG/ML VIAL IV PRN ×2 (01:04→08:37)
[2022-03-11] MEDS: Morphine 2mg Syringe 2 MG/ML SYR IV PRN ×2 (01:04→08:38)
[2022-03-11 02:56] LABS: CREATINE KINASE 43 IU/L (30-200)
[2022-03-11 07:07] LABS: BASOPHILS # (AUTO) 0.1 (0.0-0.1); BASOPHILS % 0.7 % (0.0-1.0); EOSINOPHILS # (AUTO) 0.2 (0.0-0.4); EOSINOPHILS % 2.8 % (0.0-6.0); HEMATOCRIT 41.7 % (38.2-49.6); HEMOGLOBIN 13.6 g/dL (14.0-18.0); LYMPHOCYTES # (AUTO) 2.3 (1.0-3.2); LYMPHOCYTES % 32.1 % (18.0-39.1); MEAN CORPUSCULAR HEMOGLOBIN 30.8 pg (28-32); MEAN CORPUSCULAR HGB CONC 32.6 g/dL (31-35); MEAN CORPUSCULAR VOLUME 94.6 fL (81-99); MONOCYTES # (AUTO) 0.5 (0.2-0.8); NEUTROPHILS # (AUTO) 4.1 (2.1-6.9); NEUTROPHILS % 56.7 % (38.7-80.0); PLATELET COUNT 218 x10e3/uL (140-360); RED BLOOD COUNT 4.41 x10e6/uL (4.3-5.7); RED CELL DISTRIBUTION WIDTH 12.7 % (11.7-14.4)
[2022-03-11 07:28] LABS: ANION GAP 13.6 mmol/L (8-16); CALCIUM 8.2 mg/dL (8.4-10.2); CREATININE, SERUM 0.97 mg/dL (0.72-1.25); POTASSIUM 3.6 mmol/L (3.5-5.1)
[2022-03-11 12:52] LABS: CREATINE KINASE 44 IU/L (30-200)
[2022-03-11 14:13] LABS: CHOL/HDL RATIO 2.7 (3.9-4.7)
[2022-03-11] MEDS ORDERED: ACETAMINOPHEN 325 MG TAB PO PRN (15:45)
[2022-03-12] MEDS ORDERED: SACUBITRIL/VALSARTAN 1 EACH TABLET PO SCH (09:00)
[2022-03-12] MEDS ORDERED: FUROSEMIDE 20 MG TAB PO SCH (09:00)
[2022-03-12] MEDS ORDERED: CARVEDILOL 3.125 MG TAB PO SCH (09:00)
== END 2022-03-11 19:54 | disposition home or self-care (01) | DRG 312 ==
LOC: ER 18:14 → ERHOLD 20:11 → MED/SURG 03-11 00:32 → OBSVTOIN 03-11 16:48
PROVIDERS: ADMIT Family Medicine; ATTEND Family Medicine
DX: R55 Syncope and collapse (principal); Q04.8 Other specified congenital malformations of brain; I42.8 Other cardiomyopathies; E03.9 Hypothyroidism, unspecified; R51.9 Headache, unspecified; Z20.822 Contact with and (suspected) exposure to COVID-19; Z86.74 Personal history of sudden cardiac arrest; R07.89 Other chest pain; G47.33 Obstructive sleep apnea (adult) (pediatric); I11.0 Hypertensive heart disease with heart failure; I50.9 Heart failure, unspecified; I49.5 Sick sinus syndrome; E78.5 Hyperlipidemia, unspecified; Z95.810 Presence of automatic (implantable) cardiac defibrillator
CPT/HCPCS: 0223U; 36415; 70450; 71045; 80048; 80053; 80061; 82550; 82553; 83880; 84484; 85025; 85610; 85730; 93005; 93306; 94799; 99284; G0378; J1885; J2270; J2405; J2765; J7030; J7121